=== PATIENT | female | born 1995 | race Caucasian/White ===

== ENCOUNTER 2017-02-20 01:23 | Emergency (ER) | payer MEDICAID ==
[2017-02-20 01:29] VITALS: PULSE 87
[2017-02-20] MEDS ORDERED: Dextrose 5%/0.45% NS 1,000 ML IV SCH (01:45)
[2017-02-20 01:49] VITALS: BP 124/67; RESP 14; TEMP 98.2
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
[2017-02-20 01:51] VITALS: O2SAT 98
[2017-02-20 01:59] LABS: BASO # 0.1 K/uL (0.0-0.2); BASO % 1.1 % (0.0-2.0); EOS # 0.1 K/uL (0.0-0.7); HEMATOCRIT 34.9 % (34.0-47.0); LYMPH # 2.3 K/uL (1.0-4.3); MEAN CELL VOLUME 93.5 fl (81.0-99.0); MEAN CORPUSCULAR HEMOGLOBIN 31.2 pg (27.0-31.0); MEAN CORPUSCULAR HGB CONC 33.4 g/dL (33.0-37.0); MEAN PLATELET VOLUME 6.7 fl (7.2-11.7); MONO # 0.3 K/uL (0.0-0.8); MONO % 4.3 % (0.0-10.0); NEUT # 4.3 K/uL (1.8-7.0); NEUT % 60.6 % (50.0-75.0); RED CELL DISTRIBUTION WIDTH 12.4 % (11.5-14.5); WHITE BLOOD COUNT 7.1 K/uL (4.8-10.8)
[2017-02-20 02:11] LABS: ALCOHOL SERUM 233 mg/dl (0-10); ALKALINE PHOSPHATASE 70 U/L (38-126); ALT/SGPT 19 U/L (9-52); AST/SGOT 69 U/L (14-36); BILIRUBIN,TOTAL 0.3 mg/dl (0.2-1.3); BLOOD UREA NITROGEN 9 mg/dl (7-17); CALCIUM 9.4 mg/dL (8.4-10.2); CARBON DIOXIDE 24 mmol/L (22-30); CHLORIDE 108 mmol/L (98-107); GFR AFRICAN-AMERICAN > 60; GLUCOSE,RANDOM 95 mg/dL (65-105); POTASSIUM 4.2 MMOL/L (3.6-5.0); SODIUM 146 mmol/l (132-148); TOTAL PROTEIN 9.4 G/DL (6.3-8.2)
--- NOTE | 2017-02-20 15:32 | CARD ---
APPROVED REPORT EKG Measurement Heart [id number] <Conclusion> Sinus tachycardia Otherwise normal ECG
== END 2017-02-20 02:43 | disposition home or self-care (01) ==
LOC: H.ER 01:23
DX: F10.129 Alcohol abuse with intoxication, unspecified (principal); R11.10 Vomiting, unspecified

== ENCOUNTER 2017-12-31 20:48 | Emergency (ER) | payer MEDICAID ==
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
[2017-12-31 23:02] LABS: BARBITURATES, UR NEGATIVE (NEGATIVE); BENZODIAZEPINES, UR NEGATIVE (NEGATIVE); OPIATES, UR NEGATIVE (NEGATIVE); PHENCYCLIDINE, UR NEGATIVE (NEGATIVE)
[2017-12-31 23:50] VITALS: O2SAT 100
--- NOTE | 2018-01-01 01:46 | ED PDOC ---
- ECG O2 Sat by Pulse Oximetry: 100 - Progress ED Course And Treament: Case endorsed to fha underwriter from Jose Alejandro NELSON pending sobriety 1:45 Patient awake, alert, oriented x3. Ambulating steady gait Stable for discharge Disposition - Clinical Impression Clinical Impression: Alcohol intoxication - POA Present On Arrival: None - Disposition Disposition: Routine/Home Disposition Time: 01:45 Condition: STABLE Instructions: Alcohol Use - When Is Drinking a Problem? Forms: [employer] (Kiswahili)
[2018-01-01 02:14] VITALS: BP 122/74; PULSE 74; RESP 16; TEMP 98.1
== END 2018-01-01 01:58 | disposition home or self-care (01) ==
LOC: H.ER 20:48
DX: F10.129 Alcohol abuse with intoxication, unspecified (principal)